=== PATIENT | male | born 1970 | race Caucasian/White ===

== ENCOUNTER 2018-04-25 02:02 | Emergency (ER) | payer SELFPAY ==
[2018-04-25] MEDS ORDERED: DiphenhydrAMINE 50 mg/ml Inj IVP STA (02:15)
[2018-04-25] MEDS ORDERED: Sodium Chloride 0.9% 1,000 ML IV ONE (02:16)
--- NOTE | 2018-04-25 03:08 | C.PDOC ---
History Of Present Illness 47 y/o male presents to the ED for evaluation of allergic reaction, onset 1 hour ago. Patient states that around 1:30-2:00am he was eating broccoli cheddar soup and shortly after developed itchy rash and facial swelling below both eyes. He took benadryl at home with minimal improvement. Patient reports he also had eaten a piece of a chicken sandwich this evening, but denies any known food allergens. He denies prior reactions to food. Otherwise patient denies any lip/throat swelling, shortness of breath, dizziness, or other complaints. Speaking in full sentences on arrival. Time Seen by Provider: 04/25/18 02:07 Chief Complaint (Nursing): Allergic Reaction History Per: Patient History/Exam Limitations: no limitations Onset/Duration Of Symptoms: Mins Current Symptoms Are (Timing): Still Present Possible Cause: Food Associated Symptoms: Swelling (below eyes) Home/EMS Treatment: Benadryl Past Medical History Reviewed: Historical Data, Nursing Documentation, Vital Signs Vital Signs: Last Vital Signs Temp 98.4 F 04/25/18 03:36 Pulse 67 04/25/18 03:36 Resp 14 04/25/18 03:36 BP 135/87 04/25/18 03:36 Pulse Ox 98 04/25/18 04:58 - Medical History PMH: Asthma Denies: HTN, Chronic Kidney Disease Other Surgeries: Left ACL repair Family History: States: No Known Family Hx - Social History Hx Alcohol Use: No Hx Substance Use: No - Immunization History Hx Tetanus Toxoid Vaccination: Yes Hx Influenza Vaccination: No Hx Pneumococcal Vaccination: No Review Of Systems Except As Marked, All Systems Reviewed And Found Negative. Constitutional: Negative for: Fever, Chills Eyes: Positive for: Other (bilateral swelling and redness below eyes). Negative for: Vision Change ENT: Negative for: Mouth Swelling, Throat Swelling Respiratory: Negative for: Shortness of Breath Gastrointestinal: Negative for: Nausea, Vomiting Neurological: Negative for: Dizziness Physical Exam - Physical Exam Appears: Non-toxic, No Acute Distress Skin: Warm, Dry Head: Atraumatic, Normacephalic Eye(s): bilateral: PERRL, EOMI, Other (Orbital swelling and mild erythema below eyes, no pain w/ EOMI) Oral Mucosa: Moist, No Drooling Tongue: Normal Appearing, No Swelling Lips: Normal Appearing, No Swelling Throat: Normal, No Drooling, Other (no swelling) Neck: Normal, Normal ROM, Trachea Midline, No Midline Cervical Tenderness, No Paracervical Tenderness, Supple, Other (negative kernig's and brudzinskis) Chest: Symmetrical Cardiovascular: Rhythm Regular, Other (no rub) Respiratory: No Accessory Muscle Use, No Rales, No Rhonchi, No Wheezing, Other ( no respiratory distress) Extremity: Bilateral: Atraumatic, Normal Color And Temperature, Normal ROM Neurological/Psych: Oriented x3, Normal Speech, Normal Cranial Nerves ED Course And Treatment O2 Sat by Pulse Oximetry: 98 (RA) Pulse Ox Interpretation: Normal Medical Decision Making Medical Decision Making: Impression: 47 y/o male with c/o allergic reaction this evening, onset after consuming broccoli cheddar soup. No airway involvement. No odynophagia, dysphagia or change in phonation. Plan: --Benadryl 50 mg IVP --Pepcid 40 mg IVP --Solu-Medrol 125 mg IVP --NS IV fluids --Reassess and dispo Progress/Updates: 0230 given allergy cocktail of pepcid, solumedrol, IVF and benadryl no airway involvement- no indication for epi Will watch for re-emergence of allergy symptoms @ [phone] Pt seeking to sign out AMA AMA (treatment): The patient declines to have further medical evaluation and treatment and wishes to leave the Emergency Department. This action is against my medical advice to the patient, and with informed refusal. The patient was told that evaluation and treatment are necessary and a full explanation of the rationale was given. The risks of leaving were explained to the patient and include, but are not limited to, worsening of known or currently unknown conditions, permanent disability and from undiagnosed or untreated conditions The patient has the capacity to make this informed decision and understands the clinical situation and my explanation of the risks of leaving. The patient voluntarily accepts these risks, and a signed AMA form documenting our conversation was obtained. The patient was given the opportunity to ask questions and reconsider. The patient was encouraged to return to the Emergency Department at any time for further care. Disposition - Disposition Referrals: [facility] [Outside] Disposition: AGAINST MEDICAL ADVICE Disposition Time: 04:56 Condition: GOOD Additional Instructions: CATIE POND, thank you for letting us take care of you today. Your provider was Alessio Seay and you were treated for ALLERGIC REACTION. The emergency medical care you received today was directed at your acute symptoms. If you were prescribed any medication, please fill it and take as directed. It may take several days for your symptoms to resolve. Return to the Emergency Department if your symptoms worsen, do not improve, or if you have any other problems. Please contact your doctor or call one of the physicians/clinics you have been referred to that are listed on the Patient Visit Information form that is included in your discharge packet. Bring any paperwork you were given at discharge with you along with any medications you are taking to your follow up visit. Our treatment cannot replace ongoing medical care by a primary care provider outside of the emergency department. Thank you for allowing the [facility] team to be part of your care today. If you had an X-Ray or CT scan: A Radiologist will review the ED reading if any change in treatment is needed we will contact you. If you had a blood, urine, or wound culture: It will take several days for the results, if any change in treatment is needed we will contact you. If you had an STI test: It will take 48 hours for the results. Please call after 1 week if you have not heard back. Prescriptions: DiphenhydrAMINE [Benadryl] 25 mg PO Q4H PRN 6 Days #36 cap PRN Reason: Allergy Symptoms Epinephrine HCl [Epipen Auto-Injector] 0 mg IM PRN PRN #1 ml PRN Reason: Anaphylaxis predniSONE [Prednisone] 40 mg PO QAM 5 Days #10 tab Instructions: Food Allergy, Allergy Skin Testing Forms: [employer] (Greek) - Clinical Impression Clinical Impression: Allergic reaction - Scribe Statement The provider has reviewed the documentation as recorded by the Scribe (Alena Zapata) Provider Attestation: All medical record entries made by the Scribe were at my direction and personally dictated by me. I have reviewed the chart and agree that the record accurately reflects my personal performance of the history, physical exam, medical decision making, and the department course for this patient. I have also personally directed, reviewed, and agree with the discharge instructions and disposition.
[2018-04-25 03:37] VITALS: RESP 14
[2018-04-25 05:02] VITALS: BP 132/87; PULSE 82; TEMP 98.5; O2SAT 97
== END 2018-04-25 05:07 | disposition left against medical advice (07) ==
LOC: C.ER 02:02
DX: T78.40XA Allergy, unspecified, initial encounter (principal)
CPT/HCPCS: 96361; 96374; 96375; 99285; J1200; J2930; J7030